=== PATIENT | female | born 2000 | race Caucasian/White ===

== ENCOUNTER 2019-03-05 14:32 | Emergency (ER) | payer MEDICAID ==
[~2019-03-05] VITALS: Ht 167.6 cm; Wt 91.4 kg
[~2019-03-05 14:32] MED LIST: CYCL-1 PO; IBUP-1985 PO
[2019-03-05 15:01] VITALS: BP 138/87
[2019-03-05 15:26] LABS: URINE HCG POSITIVE (NEG)
[2019-03-05 15:27] LABS: CLARITY,URINE CLOUDY (Clear); COLOR,URINE YELLOW (Yellow); GLUCOSE, URINE NEGATIVE (Neg); KETONES,URINE TRACE mg/dl (Neg); LEUKOCYTE ESTERASE ,URINE NEGATIVE (Neg); NITRITES, URINE NEGATIVE (Neg); OCCULT BLOOD,URINE LARGE (Neg); PROTEIN,URINE TRACE mg/dl (Neg)
[2019-03-05 15:28] LABS: UA COLLECTION TYPE CLN CATCH MIDSTREAM
[2019-03-05 15:37] LABS: MUCUS STRANDS MODERATE /LPF (Neg); SQUAMOUS EPITHELIAL CELL,UR MANY /LPF (FEW)
[2019-03-05 15:38] LABS: BACTERIA,URINE 2+ /HPF (Neg)
[2019-03-05] MEDS ORDERED: CEPH250T PO (15:55)
== END 2019-03-05 16:18 | disposition home or self-care (01) ==
LOC: ER 14:33
DX: O23.41 Unspecified infection of urinary tract in pregnancy, first trimester (principal); O26.891 Other specified pregnancy related conditions, first trimester; R42 Dizziness and giddiness; Z3A.01 Less than 8 weeks gestation of pregnancy
CPT/HCPCS: 81001; 81025; 99283

== ENCOUNTER 2022-08-27 09:49 | Day surgery (SDC) | payer MEDICAID ==
[2022-08-24 15:01] LABS: BASOPHILS % (AUTO) 0.2 % (0-1); EOSINOPHILS # (AUTO) 0.1 X10'3 (0-0.9); EOSINOPHILS % (AUTO) 1.1 % (0-6); LYMPHOCYTES # (AUTO) 2.4 X10'3 (1.1-4.8); LYMPHOCYTES % (AUTO) 25.4 % (21-51); MEAN CORPUSCULAR HEMOGLOBIN 30.3 PG (27.0-31.0); MEAN CORPUSCULAR HGB CONC 33.2 g/dL (33.0-36.5); MEAN CORPUSCULAR VOLUME 91.4 FL (78-98); MEAN PLATELET VOLUME 8.7 FL (7.4-10.4); MONOCYTES # (AUTO) 0.7 X10'3 (0-0.9); MONOCYTES % (AUTO) 7.7 % (2-12); NEUTROPHILS # (AUTO) 6.3 X10'3 (1.8-7.7); NEUTROPHILS % (AUTO) 65.6 % (42-75); PRE OP HEMATOCRIT 45.5 % (35.0-45.0); PRE OP HEMOGLOBIN 15.1 g/dL (12.0-16.0); PRE OP PLATELET COUNT 249 X10'3 (140-440); RED BLOOD COUNT 4.97 X10'6 (4.20-5.60); RED CELL DISTRIBUTION WIDTH 13.9 % (11.5-14.5)
[2022-08-24 15:10] LABS: ALBUMIN 3.9 G/DL (3.4-5.0); ALBUMIN/GLOBULIN RATIO 1.1 (1.1-1.5); ALKALINE PHOSPHATASE 67 IU/L (46-116); BLOOD UREA NITROGEN 12 MG/DL (7-18); BUN/CREATININE RATIO 17.6 (10.0-20.0); CALCIUM 9.5 MG/DL (8.5-10.1); CHLORIDE 103 MMOL/L (99-107); CREATININE 0.68 MG/DL (0.40-0.90); PRE OP ALT 22 U/L (30-65); PRE OP ANION GAP 9 (8-16); PRE OP AST 20 U/L (10-37); PRE OP BILIRUB, TOTAL 0.4 MG/DL (0.0-1.0); PRE OP GLUCOSE 88 MG/DL (70-104); PRE OP POTASSIUM 3.7 MMOL/L (3.4-5.1); PRE OP SODIUM 139 MMOL/L (135-145); TOTAL CARBON DIOXIDE 27.4 MMOL/L (24-32); TOTAL PROTEIN 7.3 G/DL (6.4-8.2); eGFR > 90 ML/MIN
[2022-08-24 15:21] LABS: HCG SERUM QL NEGATIVE
[2022-08-27] VITALS (9 sets, daily range): BP systolic 117–155; BP diastolic 68–98
[~2022-08-27] VITALS: Ht 167.6 cm; Wt 106.5 kg
[~2022-08-27 09:49] MED LIST changes: -CYCL-1 PO; -IBUP-1985 PO; +SUMA100T PO; +famotidine 20mg tablet PO ONE; +ringers solution, lacted 1,000 ML IV SCH
[2022-08-27] MEDS ORDERED: morphine 2 MG/ML inj. syringe IV PRN (11:55)
[2022-08-27] MEDS ORDERED: proCHLORperazine 10 MG/2 ml inj IV PRN (11:55)
[2022-08-27] MEDS ORDERED: meperidine/PF 25mg/ml syringe IV PRN ×3 (11:55)
[2022-08-27] MEDS ORDERED: labetalol 20mg/4ml (5mg/ml) syringe IV PRN (11:55)
[2022-08-27] MEDS ORDERED: acetaminophen 1,000mg/100ml IV 100 ML IV PRN (11:55)
[2022-08-27] MEDS ORDERED: hydrALAZINE 20mg/ml inj. IV PRN (11:55)
[2022-08-27] MEDS ORDERED: ketorolac trometh. 30mg/ml inj. IV ONE (11:55)
[2022-08-27] MEDS ORDERED: ringers solution, lacted 1,000 ML IV SCH (11:55)
[2022-08-27] MEDS ORDERED: morphine 4 MG/ML inj SYRINge IV PRN (11:55)
[2022-08-27] MEDS ORDERED: ondansetron/PF 4mg/2ml inj IV PRN (11:55)
[2022-08-27] MEDS ORDERED: BUPIVAcaine HCl 0.25%/EPInephrine 1:200,000 inj. 10 ML VIAL ONE (12:57)
[2022-08-27] MEDS ORDERED: fentaNYL/PF 50MCG/1 ML 2ML syringe ONE (13:25)
[2022-08-27] MEDS ORDERED: midazolam 1 mg/ML 2ml injection ONE (13:37)
[2022-08-27] MEDS ORDERED: rocuronium 10mg/ml inj IV ONE (13:37)
[2022-08-27] MEDS ORDERED: LIDOcaine 1%/PF 5ML 10 MG/ML VIAL ONE ×2 (13:37)
[2022-08-27] MEDS ORDERED: propofol inj 20 ML IV ONE (13:37)
[2022-08-27] MEDS ORDERED: morphine 10mg/ml inj. ONE (13:39)
[2022-08-27] MEDS ORDERED: dexamethasone sod phosphate 4mg/ml inj. ONE (13:46)
[2022-08-27] MEDS ORDERED: ondansetron/PF 4mg/2ml inj ONE (13:46)
[2022-08-27] MEDS ORDERED: neostigmine methylsulfate 1 MG/ML 10ml vial ONE (14:14)
[2022-08-27] MEDS ORDERED: glycopyrrolate 0.2mg/ml inj ONE (14:14)
--- NOTE | 2022-08-27 14:20 | NUR ---
FROM OR ON [facility] ACC BY DR ELIZABETH. BP ELEVATED, MD AWARE. NO PAIN. PERIPAD DISPLACED, NO BLEEDING NOTED. LARGE BANDAID TO UMBILICUS NO DRAINAGE.
--- NOTE | 2022-08-27 15:36 | NUR ---
ALL DISCHARGE CRITERIA HAS BEEN MET. VSS, PAIN AT A TOLERABLE LEVEL, ABLE TO SAFELY AMBULATE AND TRANSFER SELF. IV TAKEN OUT WITHOUT ANY COMPLICATIONS. ALL DISCHARGE INSTRUCTIONS COVERED WITH PATIENT AND ALL QUESTIONS ANSWERED. PATIENT TAKEN OUT VIA WHEELCHAIR WITH ALL BELONGINGS TO PERSONAL VEHICLE WHERE FAMILY DROVE PATIENT HOME. Addendum: 08/27/22 at 1554 by Natanael Moffett RN Amended: Links added.
[2022-08-28] MEDS ORDERED: cefazolin 2gm/D5W 100mL 100 ML IV ONE (05:30)
== END 2022-08-27 15:36 | disposition home or self-care (01) ==
LOC: PAS 09:49
PROVIDERS: ATTEND Obstetrics & Gynecology
DX: Z30.2 Encounter for sterilization (principal); G43.909 Migraine, unspecified, not intractable, without status migrainosus; E66.9 Obesity, unspecified; Z68.37 Body mass index [BMI] 37.0-37.9, adult; Z88.0 Allergy status to penicillin; Z79.899 Other long term (current) drug therapy; Z98.890 Other specified postprocedural states
CPT/HCPCS: 36415; 58670; 80053; 82948; 84703; 85025; J1100; J1885; J2250; J2274; J2405; J2704; J2710; J3010; J3490; J7120; Z7506; Z7508; Z7512; A4618; A7000

== ENCOUNTER 2023-12-27 12:37 | Emergency (ER) | payer MEDICAID ==
[~2023-12-27] VITALS: Ht 162.6 cm; Wt 68.2 kg
[~2023-12-27 12:37] MED LIST changes: -famotidine 20mg tablet PO ONE; -ringers solution, lacted 1,000 ML IV SCH
[2023-12-27] MEDS: normal saline 1000ML IV soln IVB ONE (14:25)
[2023-12-27] MEDS: ondansetron/PF 4mg/2ml inj IV ONE (14:25)
[2023-12-27] MEDS: diphenhydrAMINE 50 mg/ml inj IV ONE (16:00)
[2023-12-27] MEDS: metoclopramide 5 mg/ml inj IV ONE (16:00)
[2023-12-27] MEDS ORDERED: ONDA-243 PO (16:08)
[2023-12-27 17:29] VITALS: BP 126/74; PULSE 67; RESP 16; TEMP 98.6; O2SAT 98
== END 2023-12-27 17:50 | disposition home or self-care (01) ==
LOC: ER 12:38
DX: A08.4 Viral intestinal infection, unspecified (principal); R11.10 Vomiting, unspecified; Z88.0 Allergy status to penicillin; Z79.899 Other long term (current) drug therapy
CPT/HCPCS: 96361; 96374; 96375; 99284; J1200; J2405; J2765; J7030